=== PATIENT | male | born 2000 | race Two or more races ===

== ENCOUNTER 2020-01-02 17:14 | Emergency (ER) | payer SELFPAY ==
[2020-01-02 17:23] VITALS: BP 131/62
--- NOTE | 2020-01-02 17:37 | ER Document Report ---
ED Medical Screen (RME) - General Chief Complaint: Medical Complaint Stated Complaint: NO APPETITE,TIRED,FEELS WEAK Time Seen by Provider: 01/02/20 17:29 Mode of Arrival: Ambulatory Information source: Patient Notes: 19-year-old male presented to ED for complaint of feels like his whole body is just shutting down. He states everything tastes different everything smells different. He states he has no energy has pain in his chest and abdomen for couple weeks. States has not seen a doctor because he has no insurance. States he has not had a fever. He states he does have a history of anxiety torn ACL and traumatic cataracts and glaucoma in the right eye. He states he does use a vapor cigarette occasionally drinks and does use marijuana. The patient was evaluated during the global Covid 19 pandemic, and that diagnosis was suspected/considered upon their initial presentation. Their evaluation, treatment and testing was consistent with current guidelines for patients who present with complaints or symptoms that may be related to Covid 19. I have greeted and performed a rapid initial assessment of this patient. A comprehensive ED assessment and evaluation of the patient, analysis of test results and completion of medical decision making process will be conducted by an additional ED providers. - Related Data Allergies/Adverse Reactions: No Known Allergies Allergy (Unverified 01/02/20 17:30) Physical Exam - Vital signs Vitals: Temp Pulse Resp BP Pulse Ox 98.4 F 61 14 131/62 H 99 01/02/20 17:23 01/02/20 17:23 01/02/20 17:23 01/02/20 17:23 01/02/20 17:23 Course - Vital Signs Vital signs: Temp Pulse Resp BP Pulse Ox 98.4 F 61 14 131/62 H 99 01/02/20 17:30 01/02/20 17:23 01/02/20 17:23 01/02/20 17:23 01/02/20 17:23
[2020-01-02 18:27] LABS: APPEARANCE,URINE SLIGHTLY-CLOUDY; BILIRUBIN,URINE NEGATIVE (NEGATIVE); COLOR,URINE YELLOW; GLUCOSE, URINE NEGATIVE (NEGATIVE); KETONES,URINE 80 mg/dL (NEGATIVE); LEUKOCYTE ESTERASE,URINE TRACE (NEGATIVE); NITRITE,URINE NEGATIVE (NEGATIVE); PROTEIN,URINE 30 mg/dL (NEGATIVE); URINE SPECIFIC GRAVITY 1.032; UROBILINOGEN,URINE NEGATIVE mg/dL (<2.0)
[2020-01-02 18:34] LABS: ABSOLUTE LYMPHOCYTES (AUTO) 1.2 10^3/uL (0.5-4.7); ABSOLUTE MONOCYTES (AUTO) 0.6 10^3/uL (0.1-1.4); ABSOLUTE NEUT (AUTO) 5.2 10^3/uL (1.7-8.2); BASOPHILS % (AUTO) 0.1 % (0-2); EOSINOPHILS % (AUTO) 0.3 % (0-6); HEMATOCRIT 45.7 % (37.9-51.0); HEMOGLOBIN 15.9 g/dL (13.5-17.0); LYMPHOCYTES % (AUTO) 16.6 % (13-45); MEAN CORPUSCULAR HEMOGLOBIN 28.7 pg (27.0-33.4); MEAN CORPUSCULAR HGB CONC 34.9 g/dL (32.0-36.0); MEAN CORPUSCULAR VOLUME 82 fl (80-97); PLATELET COUNT 193 10^3/uL (150-450); RED BLOOD COUNT 5.55 10^6/uL (4.35-5.55); RED CELL DISTRIBUTION WIDTH 12.7 % (11.5-14.0); TOTAL CELLS COUNTED % (AUTO) 100 %
[2020-01-02 18:38] LABS: URINE AMPHETAMINES SCREEN NEGATIVE; URINE BARBITURATES SCREEN NEGATIVE; URINE BENZODIAZEPINES SCREEN NEGATIVE; URINE COCAINE SCREEN NEGATIVE; URINE METHADONE SCREEN NEGATIVE; URINE PHENCYCLIDINE SCREEN NEGATIVE
[2020-01-02 18:43] LABS: A TYPE INFLUENZA AG NEGATIVE (NEGATIVE); B INFLUENZA AG NEGATIVE (NEGATIVE)
[2020-01-02 18:56] LABS: ALBUMIN 4.9 g/dL (3.5-5.0); ALKALINE PHOSPHATASE 68 U/L (38-126); ANION GAP 14 (5-19); ASPARTATE AMINO TRANSFERASE 31 U/L (17-59); BILIRUBIN,DIRECT 0.5 mg/dL (0.0-0.4); BILIRUBIN,TOTAL 3.1 mg/dL (0.2-1.3); BLOOD UREA NITROGEN 21 mg/dL (7-20); CALCIUM 9.8 mg/dL (8.4-10.2); CARBON DIOXIDE 25 mmol/L (22-30); CHLORIDE 98 mmol/L (98-107); GLUCOSE 71 mg/dL (75-110); POTASSIUM 4.1 mmol/L (3.6-5.0); TOTAL PROTEIN 7.8 g/dL (6.3-8.2)
[2020-01-02 18:57] LABS: URINE MARIJUANA (THC) SCREEN UNCONFIRMED POSITIVE
--- NOTE | 2020-01-03 00:40 | ER Document Report ---
Doctor's Note Notes: 01/03/20 00:39 Patient eloped from the ER prior to my evaluation so I was unable to evaluate him. I did review his blood work which appeared nonacute. 01/03/20 00:40
== END 2020-01-02 21:02 | disposition home or self-care (01) ==
LOC: ER 17:14
DX: R63.0 Anorexia (principal); R53.83 Other fatigue; R53.1 Weakness; R43.8 Other disturbances of smell and taste; Z72.0 Tobacco use; Z20.828 Contact with and (suspected) exposure to other viral communicable diseases
CPT/HCPCS: 99281; 36415; 87070; 87880; 83690; 85025; 87635; 80053; 81001; 80307; 87804; C9803

== ENCOUNTER 2020-01-25 12:16 | Observation (INO) | payer SELFPAY ==
[2020-01-25] MEDS ORDERED: NORMAL SALINE 1000 ML 1,000 ML IV ONE (13:00)
[2020-01-25] MEDS ORDERED: HYDROMORPHONE HCL INJ/PF 2 MG/ML AMPULE IV ONE (13:02)
[2020-01-25] MEDS ORDERED: ONDANSETRON HCL INJ/PF 4 MG/2 ML SDV IV ONE (13:02)
--- NOTE | 2020-01-25 13:10 | ER Document Report ---
ED GI/ - General Stated Complaint: NAUSEA,SHORTNESS OF BREATH Time Seen by Provider: 01/25/20 12:37 Primary Care Provider: JOSIANE GARCIA [Primary Care Provider] - Follow up as needed Notes: Patient is a 19-year-old male who presents to the emergency department with a chief complaint of right-sided abdominal pain. Patient states that he has had his abdominal pain on and off for the past month or so. Patient was evaluated in the emergency department, but ended up eloping on 02 January. Patient states that he continues to feel nauseous and weak. - Related Data Allergies/Adverse Reactions: No Known Allergies Allergy (Unverified 01/02/20 17:30) Past Medical History - General Information source: Patient - Social History Smoking Status: Current Every Day Smoker Family History: Reviewed & Not Pertinent Past Surgical History: Reports: Hx Orthopedic Surgery - right acl, Hx Tonsillectomy Review of Systems - Review of Systems Notes: REVIEW OF SYSTEMS: CONSTITUTIONAL : Denies recent illness. Denies recent unintentional weight loss. See HPI. EENT: Denies eye, ear, throat, or mouth pain, discharge, or symptoms. Denies nasal or sinus congestion. CARDIOVASCULAR: Denies chest pain. RESPIRATORY: See HPI. GASTROINTESTINAL: See HPI. GENITOURINARY: Denies difficulty urinating, burning, blood in urine, urgency or frequency. MUSCULOSKELETAL: Denies neck and back pain. Denies joint pain or swelling. SKIN: Denies rash, itchiness, or lesions HEMATOLOGIC : Denies easy bruising or bleeding. LYMPHATIC: Denies swollen, painful, enlarged glands. NEUROLOGICAL: Denies no numbness or tingling denies weakness. Denies headache. Denies altered mental status. Denies alteration in speech. PSYCHIATRIC: Denies stress, anxiety, alteration in sleep patterns, or dep ression. All other systems reviewed and negative. Physical Exam - Vital signs Vitals: Temp Pulse Resp BP Pulse Ox 97.3 F 70 20 106/60 100 01/25/20 12:34 01/25/20 12:34 01/25/20 12:34 01/25/20 12:34 01/25/20 12:34 - Notes Notes: PHYSICAL EXAMINATION: GENERAL: Appears well, healthy, well-nourished, no acute distress. HEAD: Normocephalic, atraumatic. EYES: PERRL, conjunctiva normal, all extraocular movements intact, sclera nonicteric ENT: Moist mucous membranes. NECK: Supple, no noticeable swelling, redness, rash. Normal range of motion. LUNGS: Equal breath sounds bilaterally and clear to auscultation. No wheezes rales or rhonchi. CARDIOVASCULAR: S1-S2, regular rate, regular rhythm. Radial pulses 2+, normal. ABDOMEN: Normoactive bowel sounds. Soft, tender right upper abdomen. Positive Danielson sign. EXTREMITIES: Normal strength and range of motion, no pitting or edema. No cyanosis. NEUROLOGICAL: Moves all extremities upon command. Strength 5/5 in all extremities. PSYCH: Normal mood, normal affect. SKIN: Warm, dry. No rash, lesions, ulcerations noted. Normal skin turgor. Course - Re-evaluation Re-evalutation: 01/25/20 14:31 Hematology is unremarkable. Chemistries show a CO2 of 19. Glucose is 117. Total bilirubin is 1.9, which is improved from his previous visit on January 01. Urinalysis is unremarkable. Right upper quadrant ultrasound shows no biliary duct dilation or cholelithiasis. He does have gallbladder wall thickening, which is nonspecific. We will send the patient for a HIDA scan for further evaluation, as the radiologist is recommending this. Chest x-ray is unremarkable. No pneumonia or pneumothorax noted. Patient is now resting comfortably and states that his pain is bearable. 01/25/20 20:15 Dr. Rodriguez has evaluated the patient. Patient will be admitted to the surgical service. - Vital Signs Vital signs: Temp Pulse Resp BP Pulse Ox 98.1 F 55 L 16 125/53 L 100 01/25/20 18:22 01/25/20 18:22 01/25/20 18:22 01/25/20 18:22 01/25/20 18:22 - Laboratory Result Diagrams: 01/25/20 13:00 01/25/20 13:00 Laboratory results interpreted by me: 01/25/20 13:00 Carbon Dioxide 19 L Glucose 117 H Total Bilirubin 1.9 H Discharge - Discharge Clinical Impression: Biliary dyskinesia Condition: Stable Disposition: ADMITTED INPATIENT Admitting Provider: Surgicalist Unit Admitted: Surgical Floor Referrals: LOCALMD,NO [Primary Care Provider] - Follow up as needed
[2020-01-25 13:29] LABS: ABSOLUTE LYMPHOCYTES (AUTO) 1.1 10^3/uL (0.5-4.7); ABSOLUTE MONOCYTES (AUTO) 0.9 10^3/uL (0.1-1.4); ABSOLUTE NEUT (AUTO) 5.7 10^3/uL (1.7-8.2); APPEARANCE,URINE CLEAR; BASOPHILS % (AUTO) 0.2 % (0-2); BILIRUBIN,URINE NEGATIVE (NEGATIVE); COLOR,URINE YELLOW; EOSINOPHILS % (AUTO) 0.2 % (0-6); GLUCOSE, URINE NEGATIVE (NEGATIVE); HEMATOCRIT 43.5 % (37.9-51.0); HEMOGLOBIN 15.3 g/dL (13.5-17.0); KETONES,URINE NEGATIVE (NEGATIVE); LEUKOCYTE ESTERASE,URINE NEGATIVE (NEGATIVE); LYMPHOCYTES % (AUTO) 14.8 % (13-45); MEAN CORPUSCULAR HEMOGLOBIN 28.7 pg (27.0-33.4); MEAN CORPUSCULAR HGB CONC 35.2 g/dL (32.0-36.0); MEAN CORPUSCULAR VOLUME 82 fl (80-97); MONOCYTES % (AUTO) 11.3 % (3-13); NITRITE,URINE NEGATIVE (NEGATIVE); PLATELET COUNT 200 10^3/uL (150-450); PROTEIN,URINE NEGATIVE (NEGATIVE); RED BLOOD COUNT 5.34 10^6/uL (4.35-5.55); RED CELL DISTRIBUTION WIDTH 12.8 % (11.5-14.0); SEGMENTED NEUTROPHILS % (AUTO) 73.5 % (42-78); TOTAL CELLS COUNTED % (AUTO) 100 %; URINE SPECIFIC GRAVITY 1.006; UROBILINOGEN,URINE NEGATIVE mg/dL (<2.0); WHITE BLOOD COUNT 7.7 10^3/uL (4.0-10.5)
--- NOTE | 2020-01-25 13:40 | RADIOLOGY REPORT (SQ) ---
EXAM DESCRIPTION: CHEST SINGLE VIEW IMAGES COMPLETED DATE/TIME: 01/25/2020 1:22 pm REASON FOR STUDY: shortness of breath COMPARISON: None. EXAM PARAMETERS: NUMBER OF VIEWS: One view. TECHNIQUE: Single frontal radiographic view of the chest acquired. RADIATION DOSE: NA LIMITATIONS: None. FINDINGS: LUNGS AND PLEURA: No opacities, masses or pneumothorax. No pleural effusion. MEDIASTINUM AND HILAR STRUCTURES: No masses. Contour normal. HEART AND VASCULAR STRUCTURES: Heart normal in size. Normal vasculature. BONES: No acute findings. HARDWARE: None in the chest. OTHER: No other significant finding. IMPRESSION: NO ACUTE RADIOGRAPHIC FINDING IN THE CHEST. TECHNICAL DOCUMENTATION: JOB ID: [id number] 2010 [employer]- All Rights Reserved Reading location - IP/workstation name: [email or web address]
[2020-01-25] MEDS ORDERED: PROMETHAZINE HCL INJ 25 MG/1 ML VIAL IV ONE (13:49)
[2020-01-25 13:58] LABS: ALBUMIN 4.7 g/dL (3.5-5.0); ALKALINE PHOSPHATASE 60 U/L (38-126); ANION GAP 16 (5-19); ASPARTATE AMINO TRANSFERASE 30 U/L (17-59); BILIRUBIN,TOTAL 1.9 mg/dL (0.2-1.3); BLOOD UREA NITROGEN 13 mg/dL (7-20); CALCIUM 10.2 mg/dL (8.4-10.2); CARBON DIOXIDE 19 mmol/L (22-30); CHLORIDE 103 mmol/L (98-107); GLUCOSE 117 mg/dL (75-110); POTASSIUM 3.6 mmol/L (3.6-5.0); TOTAL PROTEIN 7.5 g/dL (6.3-8.2)
--- NOTE | 2020-01-25 14:09 | RADIOLOGY REPORT (SQ) ---
EXAM DESCRIPTION: U/S ABDOMEN LIMITED W/O DOP IMAGES COMPLETED DATE/TIME: 01/25/2020 1:48 pm REASON FOR STUDY: Abdominal pain, RUQ COMPARISON: None. TECHNIQUE: Grayscale images acquired of the right upper quadrant and recorded on PACS. Additional se lected color Doppler and spectral images recorded. LIMITATIONS: Acoustical interference from fat or from air in the bowel. FINDINGS: PANCREAS: The pancreas is partially obscured by overlying bowel gas. The visualized pancr eas in the midline is unremarkable. LIVER: The liver measures 16.1 cm. Echotexture normal. LIVER VASCULATURE: Normal directional flow of the main portal vein. GALLBLADDER: No shadowing stones. There is mild diffuse wall thickening of the gallbladder measuring up to 4 mm. No pericholecystic fluid. ULTRASOUND-DETECTED DANIELSON'S SIGN: Positive. INTRAHEPATIC DUCTS AND COMMON DUCT: CBD and intrahepatic ducts normal caliber. No filling defects. INFERIOR VENA CAVA: Patent. AORTA: No aneurysm at the visualized segments. RIGHT KIDNEY: The right kidney measures 10.4 cm in length. Normal echogenicity. No hydronephrosis. PERITONEAL CAVITY AND RIGHT PLEURAL SPACE: No ascites or effusions. IMPRESSION: No cholelithiasis or biliary ductal dilation. Positive sonographic Danielson's sign. Mild diffuse gallbladder wall thickening, nonspecific. If there is persistent clinical concern for acute or chronic cholecystitis, hepatobiliary scan can be obtained for further evaluation. TECHNICAL DOCUMENTATION: JOB ID: [id number] 2010 [employer]- All Rights Reserved Reading location - IP/workstation name: [email or web address]
--- NOTE | 2020-01-25 19:04 | RADIOLOGY REPORT (SQ) ---
EXAM DESCRIPTION: NM HIDA SCAN WITH CCK IMAGES COMPLETED DATE/TIME: 01/25/2020 6:23 pm REASON FOR STUDY: NAUSEA, RUQ PAIN Elevated bilirubin. COMPARISON: Right upper quadrant ultrasound 01/25/2020. RADIONUCLIDE AND DOSE: DOSAGE RADIONUCLIDE: 5.37 millicuries Tc99m Mebrofenin. DOSAGE CCK: 1.6 micrograms. DOSAGE MORPHINE: Not required. The route of agent administration: Intravenous TECHNIQUE: Serial imaging right upper quadrant up to 60 minutes following injection of radionuclide. CCK injected after gallbladder visualized. LIMITATIONS: None. FINDINGS: LIVER: Normal visualization. INTRA AND EXTRAHEPATIC BILE DUCTS: Normal accumulation of activity. GALLBLADDER: Normal visualization. Calculated Ejection Fraction of 22%. Below the normal value of 35 % or greater. PHYSICAL RESPONSE: Patients presenting complaint was reproduced. IMPRESSION: LOW GALLBLADDER EJECTION FRACTION. EVIDENCE FOR BILIARY DYSKINESIS. NO CYSTIC OR COMMO N DUCT OBSTRUCTION. TECHNICAL DOCUMENTATION: JOB ID: [id number] 2010 [employer]- All Rights Reserved Reading location - IP/workstation name: [email or web address]
[2020-01-25] MEDS ORDERED: ACETAMINOPHEN 325 MG TABLET PO PRN (20:25)
[2020-01-25] MEDS ORDERED: ONDANSETRON HCL INJ/PF 4 MG/2 ML SDV IV PRN (20:25)
--- NOTE | 2020-01-25 20:25 | PDOC H&P ---
History of Present Illness Admission Date/PCP: NO LOCALMD Patient complains of: Right upper quadrant pain with nausea History of Present Illness: KEVIN ELI is a 19 year old male, healthy, who presents to the emergency room with a complaint of right upper quadrant pain with intense nausea. The patient had a similar complaint a few weeks ago when he presented to the emergency room and was found to have elevated bilirubin (3.0) without any other elevated liver enzymes. Today, an ultrasound gallbladder has been done revealing no cholelithiasis but mild thickening of the gallbladder wall as well as a HIDA scan which reveals biliary dyskinesia) ejection fraction 22% with no obstruction of the biliary ducts. Past Surgical History Past Surgical History: Reports: Orthopedic Surgery - right acl, Tonsillectomy Social History Smoking Status: Current Every Day Smoker Electronic Cigarette use?: Yes Family History Family History: Reviewed & Not Pertinent Parental Family History Reviewed: No Children Family History Reviewed: No Sibling(s) Family History Reviewed.: No Medication/Allergy Allergies/Adverse Reactions: No Known Allergies Allergy (Unverified 01/02/20 17:30) Physical Exam Vital Signs: Temp Pulse Resp BP Pulse Ox 98.1 F 55 L 16 125/53 L 100 01/25/20 18:22 01/25/20 18:22 01/25/20 18:22 01/25/20 18:22 01/25/20 18:22 Intake & Output 01/24/20 01/25/20 01/26/20 06:59 06:59 06:59 Intake Total 1000 Balance 1000 Weight 79.5 kg General appearance: PRESENT: no acute distress, thin, well-developed Head exam: PRESENT: atraumatic, normocephalic Eye exam: PRESENT: EOMI Mouth exam: PRESENT: moist, neck supple Neck exam: PRESENT: full ROM Respiratory exam: PRESENT: clear to auscultation laurita Cardiovascular exam: PRESENT: RRR GI/Abdominal exam: PRESENT: Danielson's sign - Positive, normal bowel sounds, soft, tenderness - Right upper quadrant numbness, abdomen not distended Rectal exam: PRESENT: deferred Extremities exam: PRESENT: full ROM Musculoskeletal exam: PRESENT: full ROM Neurological exam: PRESENT: alert, awake, oriented to time Psychiatric exam: PRESENT: appropriate affect Skin exam: PRESENT: warm Results Laboratory Results: 01/25/20 13:00 01/25/20 13:00 01/25/20 01/25/20 01/25/20 13:00 13:00 13:00 WBC 7.7 RBC 5.34 Hgb 15.3 Hct 43.5 MCV 82 MCH 28.7 MCHC 35.2 RDW 12.8 Plt Count 200 Seg Neutrophils % 73.5 Sodium 138.0 Potassium 3.6 Chloride 103 Carbon Dioxide 19 L Anion Gap 16 BUN 13 Creatinine 1.00 Est GFR ( Amer) > 60 Glucose 117 H Calcium 10.2 Total Bilirubin 1.9 H AST 30 Alkaline Phosphatase 60 Total Protein 7.5 Albumin 4.7 Urine Color YELLOW Urine Appearance CLEAR Urine pH 8.0 Ur Specific [place] 1.006 Urine Protein NEGATIVE Urine Glucose (UA) NEGATIVE Urine Ketones NEGATIVE Urine Blood NEGATIVE Urine Nitrite NEGATIVE Ur Leukocyte Esterase NEGATIVE Urine WBC (Auto) 5 Urine RBC (Auto) 0 Impressions: Chest X-Ray 01/25/20 13:00 IMPRESSION: NO ACUTE RADIOGRAPHIC FINDING IN THE CHEST. Abdomen Ultrasound 01/25/20 13:02 IMPRESSION: No cholelithiasis or biliary ductal dilation. Positive sonographic Danielson's sign. Mild diffuse gallbladder wall thickening, nonspecific. If there is persistent clinical concern for acute or chronic cholecystitis, hepatobiliary scan can be obtained for further evaluation. Hepatobiliary Scan Nuclear Medicine 01/25/20 14:25 IMPRESSION: LOW GALLBLADDER EJECTION FRACTION. EVIDENCE FOR BILIARY DYSKINESIS. NO CYSTIC OR COMMON DUCT OBSTRUCTION. Assessment & Plan - Diagnosis (1) Biliary dyskinesia Is this a current diagnosis for this admission?: Yes (2) Benign unconjugated bilirubinemia syndrome Is this a current diagnosis for this admission?: Yes - Time Anticipated Discharge Disposition: Home, Self Care Anticipated Discharge Timeframe: within 24 hours - Plan Summary Plan Summary: Assessment: Healthy 19-year-old male with right upper quadrant pain intense nausea Physical exam significant for positive Danielson sign Blood work shows a mild elevated total bilirubin of 1.9 all unconjugated, remaining liver profile and blood work within normal limits X-ray negative Ultrasound gallbladder negative for cholelithiasis but significant for mild tingling of the gallbladder wall HIDA scan shows decreased ejection fraction to 2% as per dyskinesia the gallbladder with. The cystic duct bile ducts Plan: Admit N.p.o. after midnight Plan laparoscopic cholecystectomy, possible open, possible cholangiogram tomorrow morning Patient may be discharged home tomorrow following the procedure if well tolerated Mefoxin 2 g IV piggyback adoption services manager to the OR tomorrow
[2020-01-25] MEDS: FAMOTIDINE INJ/PF 20 MG/2 ML SDV IV SCH (21:50)
[2020-01-25] MEDS: NORMAL SALINE 1000 ML 1,000 ML IV PRN (22:12)
[2020-01-25] MEDS ORDERED: DIPHENHYDRAMINE HCL 50 MG CAPSULE PO ONE (22:30)
[2020-01-25] MEDS: MORPHINE SULFATE 10 MG/ML INJ IV PRN (23:09)
[2020-01-26 05:06] LABS: ABSOLUTE EOSINOPHILS # (AUTO) 0.1 10^3/uL (0.0-0.6); ABSOLUTE LYMPHOCYTES (AUTO) 1.6 10^3/uL (0.5-4.7); ABSOLUTE MONOCYTES (AUTO) 0.6 10^3/uL (0.1-1.4); ABSOLUTE NEUT (AUTO) 3.6 10^3/uL (1.7-8.2); BASOPHILS % (AUTO) 0.2 % (0-2); EOSINOPHILS % (AUTO) 1.1 % (0-6); HEMATOCRIT 38.7 % (37.9-51.0); HEMOGLOBIN 13.3 g/dL (13.5-17.0); LYMPHOCYTES % (AUTO) 27.1 % (13-45); MEAN CORPUSCULAR HEMOGLOBIN 28.5 pg (27.0-33.4); MEAN CORPUSCULAR HGB CONC 34.4 g/dL (32.0-36.0); MEAN CORPUSCULAR VOLUME 83 fl (80-97); MONOCYTES % (AUTO) 10.3 % (3-13); PLATELET COUNT 153 10^3/uL (150-450); RED BLOOD COUNT 4.67 10^6/uL (4.35-5.55); RED CELL DISTRIBUTION WIDTH 13.2 % (11.5-14.0); SEGMENTED NEUTROPHILS % (AUTO) 61.3 % (42-78); TOTAL CELLS COUNTED % (AUTO) 100 %; WHITE BLOOD COUNT 5.8 10^3/uL (4.0-10.5)
[2020-01-26] MEDS: MORPHINE SULFATE 10 MG/ML INJ IV PRN ×2 (05:32→08:59)
[2020-01-26 05:36] LABS: ALBUMIN 3.6 g/dL (3.5-5.0); ALKALINE PHOSPHATASE 43 U/L (38-126); ANION GAP 10 (5-19); ASPARTATE AMINO TRANSFERASE 25 U/L (17-59); BILIRUBIN,TOTAL 1.8 mg/dL (0.2-1.3); BLOOD UREA NITROGEN 13 mg/dL (7-20); CALCIUM 8.7 mg/dL (8.4-10.2); CARBON DIOXIDE 24 mmol/L (22-30); CHLORIDE 104 mmol/L (98-107); GLUCOSE 84 mg/dL (75-110); POTASSIUM 3.8 mmol/L (3.6-5.0)
[2020-01-26] MEDS: NORMAL SALINE 1000 ML 1,000 ML IV PRN (05:36)
[2020-01-26] MEDS ORDERED: CEFOXITIN 1 GM/D5W RTU 1 GM/50 ML RTUPB IV PRN (08:00)
[2020-01-26] MEDS: FAMOTIDINE INJ/PF 20 MG/2 ML SDV IV SCH (09:12)
[2020-01-26] MEDS ORDERED: CEFOXITIN 1 GM/D5W RTU 2 GM/100 ML RTUPB IV ONE (09:37)
[2020-01-26] MEDS ORDERED: BUPIVACAINE HCL 0.25 % INJ/PF (2.5 MG/1 ML) 30 ML VIAL ONE (09:40)
[2020-01-26] MEDS ORDERED: FENTANYL CITRATE INJ/PF 100 MCG/2 ML AMPUL ONE (09:52)
[2020-01-26] MEDS ORDERED: MIDAZOLAM 2 MG/2 ML INJ ONE (09:52)
[2020-01-26] MEDS ORDERED: HYDROMORPHONE HCL INJ/PF 2 MG/ML AMPULE ONE (09:52)
[2020-01-26] MEDS ORDERED: PROPOFOL INJ 200 MG/20 ML VIAL IV ONE (09:52)
[2020-01-26] MEDS ORDERED: PROMETHAZINE HCL INJ 25 MG/1 ML VIAL IV PRN ×2 (10:29)
[2020-01-26] MEDS ORDERED: OXYCODONE-ACETAMINOPHEN 5-325 MG TABLET PO PRN ×2 (10:29)
[2020-01-26] MEDS ORDERED: MEPERIDINE HCL/PF INJ 25 MG/1 ML DISP.SYRIN IV PRN (10:29)
[2020-01-26] MEDS ORDERED: FENTANYL CITRATE INJ/PF 100 MCG/2 ML AMPUL IV PRN ×3 (10:29)
[2020-01-26] MEDS ORDERED: ONDANSETRON HCL INJ/PF 4 MG/2 ML SDV IV PRN (10:29)
[2020-01-26] MEDS ORDERED: DIPHENHYDRAMINE HCL 50 MG/ML VIAL IV PRN (10:29)
[2020-01-26] MEDS ORDERED: ACETAMINOPHEN WITH CODEINE #3 TABLET PO PRN (11:25)
--- NOTE | 2020-01-26 11:38 | Operative Report ---
Operative Report DATE OF SURGERY: 01/26/20 PREOPERATIVE DIAGNOSIS: 1. Chronic cholecystitis with cholelithiasis. 2. Malena vated total bilirubin POSTOPERATIVE DIAGNOSIS: Same with. 1. Extensive right upper intra-abdominal adhesions. 2. Normal intraoperative cholangiogram OPERATION: 1. Laparoscopic cholecystectomy. 2. Laparoscopic lysis of adhesions. 3. Intraoperative cholangiography. 4. Interpretation of intraoperative cholangiography SURGEON: SOFIA AGUILAR ANESTHESIA: GA TISSUE REMOVED OR ALTERED: 1 gallbladder with contents COMPLICATIONS: None ESTIMATED BLOOD LOSS: 5 cc INTRAOPERATIVE FINDINGS: See below PROCEDURE: The patient was seen in the preop holding area, discussed plan for surgery, including risk benefits and alternatives including bleeding, infection, bile duct injury, retained bile duct stone, need for additional surgery. Patient signed his consent and was taken to the operating room and general anesthesia was induced. The abdomen was exposed, prepped and draped in sterile fashion. Surgical plan and surgical timeout were conducted. Markings were made on the skin for for port laparoscopy above the umbilicus, in the epigastric area, and in the subcostal region. A vertical incision was made over the umbilicus, hemostat used to elevate the soft tissue, and a Veress needle was inserted into the peritoneal cavity. Pneumoperitoneum was established, Veress needle removed, and a 5 mm trocar was inserted the peritoneal cavity. A 5 mm flexible scope was inserted, and under direct visualization, 3 additional 5 mm ports were inserted, one in the subxiphoid, midline, and 2 in the subcostal region Intra-abdominal findings were significant for extensive adhesions between the anterior surface of both lobes of the liver, the anterior abdominal wall, as well as between the liver, gallbladder, greater omentum, and stomach. Multiple photos were taken. Fortunately at the end of the operation, printer malfunctioned and none of the intraoperative photos were available for permanent record. We brought onto the field a LigaSure G device, and proceeded to lyse adhesions between the edges of the liver, and the gallbladder, as well as the falciform ligament, stomach and gallbladder so as to ensure safe manipulation of the epigastric trocar. We did not do a complete lysis of adhesions. The etiology of the adhesions remains uncertain. 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 Of note we visualized all entry sites and there was no evidence of vascular or visceral injury. We now placed a retractor on the gallbladder, and elevated up out of the peritoneal cavity. Extensive lysis of adhesions between the body, and infundibulum of the gallbladder, and the omentum was performed. We now repositioned our graspers and began dissecting out the neck of the gallbladder. Again extensive adhesions were taken down mostly using and fine electrocautery dissection. We opened up the triangle of Jesse widely, and obtained the critical view. We got on both right and left sides of the triangle, and again took multiple photographs. The cystic artery and cystic duct were in the usual location. We left the cystic duct proximally 2 times once distally and divided it with scissors. We now placed a clip on the gallbladder side of the cystic duct, and over the cystic duct with a pair of laparoscopic scissors. We brought onto the field a disposable cutaneous low-profile cholangiogram catheter. A ole was made in the skin with 11 blade between the subcostal ridge and the most medial subcostal trocar. The cholangiogram catheter was threaded through the intra-abdominal wall, stent removed, and appropriate irrigation and imaging apparatus attached. We advanced the free end of the catheter approximately 1-1/2 cm into the cystic duct opening, and secured the catheter with a single clip. All instruments were removed, patient leveled out, and intraoperative cholangiogram was performed. Full-strength Isovue contrast was used, infusing approximately 8 cc total with the patient leveled out. Fluoroscopic evaluation demonstrated with the egress of contrast into the duodenum. A few additional cc of contrast demonstrated the entire intra and extrahepatic biliary tree with no evidence of extravasation, no evidence of ductal dilatation or ductal opacities. This was interpreted as a normal intraoperative cholangiogram. We returned to the field, restored instrumentation, remove the retention clip, and cholangiogram catheter. The cystic duct proximally was clipped twice and then divided with scissors. The gallbladder was removed from the liver bed using hook cautery dissection, then brought out the patient to the supraumbilical port site after stretching the fascia. We returned the peritoneal cavity check for bleeding there was none. Again previously noted adhesions some of which were lysed were not actively bleeding. Cystic duct stump and cystic artery stump both visualized and had clips in good position. We felt the operation was complete. Sponge and needle counts are correct. The patient was leveled out, all ports removed, pneumoperitoneum evacuated wounds closed with 0 Vicryl above the umbilicus, then skin closed with 3-0 Vicryl, benzoin and Steri-Strips. Patient tolerated the procedure well, extubated, taken to the recovery room stable condition.
[2020-01-26] MEDS ORDERED: LIDOCAINE 2% INJ-PF (20 MG/ML) 10 ML AMPUL ONE (11:42)
[2020-01-26] MEDS ORDERED: NEOSTIGMINE METHYLSULFATE 10 MG/10 ML VIAL ONE (12:13)
[2020-01-26] MEDS ORDERED: KETOROLAC TROMETHAMINE 60 MG/2 ML SDV ONE (12:13)
[2020-01-26] MEDS ORDERED: ROCURONIUM BROMIDE INJ 50 MG/5 ML VIAL IV ONE (12:13)
[2020-01-26] MEDS ORDERED: ONDANSETRON HCL INJ/PF 4 MG/2 ML SDV ONE (12:13)
[2020-01-26] MEDS ORDERED: METOCLOPRAMIDE HCL INJ/PF 10 MG/2 ML SDV ONE (12:13)
[2020-01-26] MEDS ORDERED: DEXAMETHASONE SOD PHOSPHATE INJ 4 MG/1 ML VIAL ONE (12:13)
[2020-01-26] MEDS ORDERED: GLYCOPYRROLATE 1 MG/5 ML VIAL ONE (12:13)
[2020-01-26] MEDS ORDERED: LIDOCAINE 2% INJ-PF (20 MG/ML) 2 ML AMPUL ONE (12:13)
--- NOTE | 2020-01-26 15:57 | RADIOLOGY REPORT (SQ) ---
EXAM DESCRIPTION: CHOLANGIOGRAM OPERATIVE IMAGES COMPLETED DATE/TIME: 01/26/2020 11:54 am REASON FOR STUDY: CHOLANGIOGRAM IN OR COMPARISON: None. FLUOROSCOPY TIME: 0.1 minute 6 images saved to PACS. TECHNIQUE: 6 fluoroscopic images were obtained from an intraoperative cholangiogram. LIMITATIONS: None. FINDINGS: There is opacification of the bile ducts, cystic duct remnants and second portion of the d uodenum without evidence of fixed filling defect or significant extravasation. IMPRESSION: INTRAOPERATIVE CHOLANGIOGRAM. COMMENT: Quality ID [id number]: Final reports for procedures using fluoroscopy that document radiation exp osure indices, or exposure time and number of fluorographic images (if radiation exposure indices are not available) TECHNICAL DOCUMENTATION: JOB ID: [id number] 2010 [employer]- All Rights Reserved Reading location - IP/workstation name: [email or web address]
--- NOTE | 2020-01-26 16:06 | PDOC DISCHARGE SUMMARY ---
General - Admit/Disc Date/PCP Admission Date/Primary Care Provider: 01/25/20 20:31 Discharge Date: 01/26/20 - Discharge Diagnosis Final Diagnosis: Chronic cholecystitis, cholelithiasis; intra-abdominal adhesions adhesions - Assessment Summary: The patient is a 19-year-old male, previously healthy presents emergency department with a several day history of abdominal pain nausea, right upper quadrant tenderness. Is seen in the emergency department where he was found to have slightly elevated liver function studies. His total bilirubin was 1.9. Gallbladder ultrasound suggested gallbladder wall thickening but no stones. Patient is admitted to the acute care general surgery service where he was kept n.p.o. on IV fluids. He had a HIDA scan which confirmed a an ejection fraction of 11%. He was taken to the operating room by Dr. Pete Pardo on January 25 where he underwent laparoscopic cholecystectomy with intraoperative cholangiography. He was found to have a chronically inflamed gallbladder, extensive right upper quadrant adhesions, and a normal intraoperative cholangiogram. Postoperatively he did well, tolerated diet, voided. He did have some bleeding from one of his laparoscopy sites in the recovery room requiring an oversewing suture. He did well thereafter Patient was felt to receive maximum benefit of hospitalization was discharged home the afternoon 01/26/2020. Arrangements will be made for him to follow-up with Dr. Pardo at [facility] in 1 to 2 weeks. He will take Tylenol or Motrin as needed pain. He was instructed to remove the reinforcement dressings in 48 hours. He and/or his family will call our office for any issues. - Additional Information Resuscitation Status: Full Code Referrals: [facility] [Provider Group] - 02/05/20 1:45 pm (Appointment with Dr. Pardo.) Home Medications: No Home Medications 01/25/20 History of Present Illiness History of Present Illness: KEVIN ELI is a 19 year old male Physical Exam Vital Signs: Temp Pulse Resp BP Pulse Ox 98.1 F 91 16 131/71 H 100 01/26/20 14:30 01/26/20 14:30 01/26/20 14:30 01/26/20 14:30 01/26/20 14:30 Intake & Output 01/25/20 01/26/20 01/27/20 06:59 06:59 06:59 Intake Total 1925 2500 Balance 1925 2500 Weight 79.5 kg Results Laboratory Results: WBC 5.8 10^3/uL (4.0-10.5) 01/26/20 04:50 RBC 4.67 10^6/uL (4.35-5.55) 01/26/20 04:50 Hgb 13.3 g/dL (13.5-17.0) L 01/26/20 04:50 Hct 38.7 % (37.9-51.0) 01/26/20 04:50 MCV 83 fl (80-97) 01/26/20 04:50 MCH 28.5 pg (27.0-33.4) 01/26/20 04:50 MCHC 34.4 g/dL (32.0-36.0) 01/26/20 04:50 RDW 13.2 % (11.5-14.0) 01/26/20 04:50 Plt Count 153 10^3/uL (150-450) 01/26/20 04:50 Lymph % (Auto) 27.1 % (13-45) 01/26/20 04:50 Maverick % (Auto) 10.3 % (3-13) 01/26/20 04:50 Eos % (Auto) 1.1 % (0-6) 01/26/20 04:50 Baso % (Auto) 0.2 % (0-2) 01/26/20 04:50 Absolute Neuts (auto) 3.6 10^3/uL (1.7-8.2) 01/26/20 04:50 Absolute Lymphs (auto) 1.6 10^3/uL (0.5-4.7) 01/26/20 04:50 Absolute Monos (auto) 0.6 10^3/uL (0.1-1.4) 01/26/20 04:50 Absolute Eos (auto) 0.1 10^3/uL (0.0-0.6) 01/26/20 04:50 Absolute Basos (auto) 0.0 10^3/uL (0.0-0.2) 01/26/20 04:50 Seg Neutrophils % 61.3 % (42-78) 01/26/20 04:50 Sodium 137.8 mmol/L (137-145) 01/26/20 04:50 Potassium 3.8 mmol/L (3.6-5.0) 01/26/20 04:50 Chloride 104 mmol/L (98-107) 01/26/20 04:50 Carbon Dioxide 24 mmol/L (22-30) 01/26/20 04:50 Anion Gap 10 (5-19) 01/26/20 04:50 BUN 13 mg/dL (7-20) 01/26/20 04:50 Creatinine 0.93 mg/dL (0.52-1.25) 01/26/20 04:50 Est GFR ( Amer) > 60 (>60) 01/26/20 04:50 Est GFR (MDRD) Non-Af > 60 (>60) 01/26/20 04:50 Glucose 84 mg/dL (75-110) 01/26/20 04:50 Calcium 8.7 mg/dL (8.4-10.2) 01/26/20 04:50 Total Bilirubin 1.8 mg/dL (0.2-1.3) H 01/26/20 04:50 Direct Bilirubin 0.0 mg/dL (0.0-0.4) 01/26/20 04:50 Neonat Total Bilirubin Not Reportable 01/26/20 04:50 Neonat Direct Bilirubin Not Reportable 01/26/20 04:50 Neonat Indirect Bili Not Reportable 01/26/20 04:50 AST 25 U/L (17-59) 01/26/20 04:50 ALT 15 U/L (<50) 01/26/20 04:50 Alkaline Phosphatase 43 U/L (38-126) 01/26/20 04:50 Total Protein 6.0 g/dL (6.3-8.2) L 01/26/20 04:50 Albumin 3.6 g/dL (3.5-5.0) 01/26/20 04:50 Urine Color YELLOW 01/25/20 13:00 Urine Appearance CLEAR 01/25/20 13:00 Urine pH 8.0 (5.0-9.0) 01/25/20 13:00 Ur Specific [place] 1.006 01/25/20 13:00 Urine Protein NEGATIVE mg/dL (NEGATIVE) 01/25/20 13:00 Urine Glucose (UA) NEGATIVE mg/dL (NEGATIVE) 01/25/20 13:00 Urine Ketones NEGATIVE mg/dL (NEGATIVE) 01/25/20 13:00 Urine Blood NEGATIVE (NEGATIVE) 01/25/20 13:00 Urine Nitrite NEGATIVE (NEGATIVE) 01/25/20 13:00 Urine Bilirubin NEGATIVE (NEGATIVE) 01/25/20 13:00 Urine Urobilinogen NEGATIVE mg/dL (<2.0) 01/25/20 13:00 Ur Leukocyte Esterase NEGATIVE (NEGATIVE) 01/25/20 13:00 Urine WBC (Auto) 5 /HPF 01/25/20 13:00 Urine RBC (Auto) 0 /HPF 01/25/20 13:00 Urine Mucus (Auto) RARE /LPF 01/25/20 13:00 Urine Ascorbic Acid NEGATIVE (NEGATIVE) 01/25/20 13:00 SARS-CoV-2 (PCR) NEGATIVE (NEGATIVE) 01/25/20 20:40 Impressions: Chest X-Ray 01/25/20 13:00 IMPRESSION: NO ACUTE RADIOGRAPHIC FINDING IN THE CHEST. Abdomen Ultrasound 01/25/20 13:02 IMPRESSION: No cholelithiasis or biliary ductal dilation. Positive sonographic Danielson's sign. Mild diffuse gallbladder wall thickening, nonspecific. If there is persistent clinical concern for acute or chronic cholecystitis, hepatobiliary scan can be obtained for further evaluation. Hepatobiliary Scan Nuclear Medicine 01/25/20 14:25 IMPRESSION: LOW GALLBLADDER EJECTION FRACTION. EVIDENCE FOR BILIARY DYSKINESIS. NO CYSTIC OR COMMON DUCT OBSTRUCTION. Cholangiogram 01/26/20 00:00 IMPRESSION: INTRAOPERATIVE CHOLANGIOGRAM.
[2020-01-26 16:11] VITALS: BP 108/56
== END 2020-01-26 16:25 | disposition home or self-care (01) ==
LOC: ER 12:16 → EH 20:31 → INTOOBSV 20:31 → 4W 22:00
PROVIDERS: ATTEND Surgery
DX: K81.1 Chronic cholecystitis (principal); K66.0 Peritoneal adhesions (postprocedural) (postinfection); E80.4 Gilbert syndrome; Z03.818 Encounter for observation for suspected exposure to other biological agents ruled out; F17.210 Nicotine dependence, cigarettes, uncomplicated
CPT/HCPCS: 99285; 96361; 96374; 96375; 36415 ×2; 87040; 85025 ×2; 87635; 80053 ×2; 81001; 88304 ×2; 71045; 74300; 76705; 78227; 00790; 47563; 49329; G0378 ×2; Q9967; J2805; A9537; J2250; J3490 ×4; J1100; J1885; J0694; J2765; J2270 ×2; J2710; J1170 ×2; J2550; J2405 ×2; J7030 ×2; J2704; S0028; Q9969; C9803; 790; J3010